=== PATIENT | male | born 2000 | race Two or more races ===

== ENCOUNTER 2022-03-19 20:18 | Emergency (ER) | payer MEDICAID, OTHER ==
[~2022-03-19] VITALS: Ht 180.3 cm; Wt 99.9 kg
[2022-03-20] MEDS ORDERED: AMOX-277 PO (02:12)
[2022-03-20] MEDS ORDERED: TETANUS-DIPTH-ACEL PERTUSSIS 0.5ML SYR Tdap IM ONE (02:15)
[2022-03-20 02:21] VITALS: BP 124/85
== END 2022-03-20 02:51 | disposition home or self-care (01) ==
LOC: ER 20:22
DX: S60.512A Abrasion of left hand, initial encounter (principal); S61.452A Open bite of left hand, initial encounter; Z88.1 Allergy status to other antibiotic agents; W54.0XXA Bitten by dog, initial encounter; Y93.89 Activity, other specified; Y92.89 Other specified places as the place of occurrence of the external cause; Y99.8 Other external cause status
CPT/HCPCS: 90471; 90715